=== PATIENT | male | born 1995 | race Caucasian/White ===

== ENCOUNTER 2023-12-25 13:54 | Emergency (ER) | payer OTHER, SELFPAY ==
[2023-12-25 13:55] VITALS: BP 162/88; PULSE 111; RESP 16; TEMP 35.9; O2SAT 98; BMI 34.8
--- NOTE | 2023-12-25 14:01 | CT_ITS ---
EXAM: CT HEAD WITHOUT INTRAVENOUS CONTRAST CLINICAL INDICATION: visual problem TECHNIQUE: Multiple axial images were obtained of the head without intravenous contrast. This CT exam was performed using one or more of the following dose reduction techniques: automated exposure control, adjustment of the mA and/or kV according to patient size, and/or use of iterative reconstruction technique. RADIATION DOSE: CTDIvol = 44.99 mGy, DLP = 846.73 mGy-cm COMPARISON: No relevant prior studies available. FINDINGS: BRAIN AND EXTRA-AXIAL SPACES: Unremarkable. No intra- or extra-axial hemorrhage. No evidence of acute infarct. No intracranial mass or mass effect. There is preservation of the rawls/white matter interface. Posterior fossa structures are unremarkable. Ventricles are appropriate for age. No hydrocephalus. Basal cisterns are patent. BONES/JOINTS: Unremarkable. No discrete lytic or blastic abnormalities. SINUSES: There is sinus disease. MASTOID AIR CELLS: Unremarkable. Clear. ORBITS: Visualized globes, extraocular muscles, optic nerves and retrobulbar fat appear unremarkable. CT/Brain/Head without Contrast IMPRESSION: No acute findings in the head/brain. Electronically Signed: Ryley Godwin MD at 14:45 EDT ,
[2023-12-25 14:40] LABS: Absolute Lymphocyte Count 1.96 X10^3/uL (0.83-4.51); Basophil# 0.06 X10^3/uL; Basophil% 0.4 % (0-1); Eosinophil# 0.02 X10^3/uL; Eosinophils% 0.1 % (0-5); Hematocrit 44.4 % (40-54); Hemoglobin 14.8 g/dL (13.0-16.5); Lymphocyte # 1.96 X10^3/ul (0.83-4.51); Lymphocyte % 12.2 % (19-41); Mean Corp Hgb Conc 33.3 g/dL (32-36); Mean Corpuscular Hgb 28.6 pg (27.0-32.0); Mean Corpuscular Volume 85.7 fL (80-94); Mean Platelet Vol. 11.4 fl (6.2-12.0); Monocyte# 1.02 X10^3/uL; Monocyte% 6.3 % (0-10); NRBC Flagged by Analyzer 0 % (0-5); Neutrophil # 12.95 X10^3/uL (2.7-7.7); Neutrophil % 80.6 % (47-70); Platelet Count 242 K/mm3 (150-450); RBC Distribution Width CV 13.2 % (11.6-14.6); RBC Distribution Width SD 41.1 fl (35.1-43.9); Red Blood Count 5.18 M/mm3 (4.6-6.2); White Blood Count 16.1 K/mm3 (4.4-11.0)
--- NOTE | 2023-12-25 14:53 | EDS_ITS ---
HPI History of Present Illness Chief Complaint: Eye Problem Narrative Narrative: 28-year-old male presenting as a referral from Dr. Gu. He is being worked up for optic neuritis as an outpatient. Dr. Gu wants to make sure that he has a normal CT of the brain that does not have a mass because he is having blurring of the vision which has been present for 2 days. Denies headaches. Denies fevers or chills. Denies neck pain or stiffness. Denies any history of similar symptoms. He states his left eye vision is eating worse. It hurts when he moves his eye left and right. No facial swelling. No trauma. PFSH PFSH Allergy/AdvReac Type Severity Reaction Status Date / Time azithromycin (From Zithromax) Allergy Mild Hives Verified 12/25/23 13:57 Social History Smoking Status: Never smoker EXAM Physical Exam Const Vital Signs: 12/25/23 13:55 Temperature 96.6 F L Temperature Source Temporal Pulse Rate 111 H Respiratory Rate 16 Blood Pressure 162/88 H Blood Pressure Mean 112 Pulse Ox 98 Oxygen Delivery Method Room Air Positive well nourished General Appearance ED: NAD HEENT atraumatic Neck no lymphadenopathy Resp normal respiratory effort Cardio regular rate and regular rhythm Neuro oriented x3 and CN's II-XII intact bilaterally Sensorium / Orientation: alert Motor Exam: strength 5/5 throughout Skin no wounds MDM MDM MDM Narrative Medical decision making narrative: 28-year-old male presenting with left eye pain and visual loss. He was seen by Dr. Gu who diagnosed him with optic neuritis. He recommended getting a CT scan to make sure he did not have any kind of tumor. He does not feel like the patient has any kind of infectious process. CT of the brain was negative. Dr. Gu requested a CBC which shows a white blood cell count of 16.1. Platelets are normal. Patient states he has not had any other symptoms. He has not had a fever, chills, cough. He has not any nausea or vomiting. Denies abdominal pain. It is unclear what the source of the white blood cell count is however when I spoke with Dr. Gu again he recommended giving the patient Solu- Medrol 1 g and he will have him follow-up as an outpatient to get infusions of this for the next couple of days until he can get into the [facility]. He is concerned the patient might have MS. Patient is comfortable with this plan and is discharged home in stable condition. Impression: 1. Optic neuritis 2. Leukocytosis Lab Data Attestation: I reviewed the patient's lab results. Labs: Laboratory Results - last 24 hr 12/25/23 14:29 WBC 16.1 H RBC 5.18 Hgb 14.8 Hct 44.4 MCV 85.7 MCH 28.6 MCHC 33.3 RDW Std Deviation 41.1 RDW Coeff of Joe 13.2 Plt Count 242 MPV 11.4 Immature Gran % (Auto) 0.400 Neut % (Auto) 80.6 H Lymph % (Auto) 12.2 L [place] % (Auto) 6.3 Eos % (Auto) 0.1 Baso % (Auto) 0.4 Absolute Neuts (auto) 13.0 H Absolute Lymphs (auto) 1.96 Nucleated RBC % 0 Radiography Diagnostic Testing: Clinical Impression(s) from Imaging Studies Brain CT 12/25/23 14:01 IMPRESSION: No acute findings in the head/brain. Electronically Signed: Ryley Godwin MD at 14:45 EDT , Discharge Plan Triage Chief Complaint: Eye Problem ED Provider: Klaus Benitez Dx/Rx/DC Orders Primary Care Provider: Anthony Cameron Referrals: Anthony Cameron MD [Primary Care Provider] - Print Language: Bhutanese
[2023-12-25 14:54] LABS: Anion Gap 8 (5-15); BUN 18 mg/dL (7-18); BUN/Creat Ratio 18.8 RATIO (10-20); Calcium,Total 9.2 mg/dL (8.5-10.1); Chloride 107 mmol/L (98-107); Creatinine, Serum 0.96 mg/dL (0.70-1.30); EST Glomerular Filtration Rate 98 mL/min (>60); Est Glom Filt Rate - Afr Amer 118 mL/min (>60); Estimated Creatinine Clearance 139.84 ml/min; Glucose 153 mg/dL (74-106); Potassium 3.5 mmol/L (3.5-5.1); Sodium Level 139 mmol/L (136-145)
[2023-12-25 15:31] VITALS: BP 136/82; PULSE 101; RESP 18; TEMP 36.4; O2SAT 97
[2023-12-25] MEDS: MethylPREDNISolone 1,000 MG in 0.9% Normal Saline (100mL Bag) 100 ML 100 MG IV (15:39)
[2023-12-25 16:00] VITALS: BP 158/68; PULSE 82; RESP 16; O2SAT 99
[2023-12-25 16:57] VITALS: BP 132/73; PULSE 104
== END 2023-12-25 17:01 | disposition home or self-care (01) ==
PROVIDERS: Emergency Provider Student in an Organized Health Care Education/Training Program; PCP Family Medicine; Visit Provider Student in an Organized Health Care Education/Training Program
DX: H46.9 Unspecified optic neuritis (principal); H54.7 Unspecified visual loss; D72.829 Elevated white blood cell count, unspecified
CPT/HCPCS: 70450; 80048; 85025; 96365; 99282; A4216; J2919

== ENCOUNTER 2023-12-26 11:43 | Outpatient (CLI) | payer OTHER, SELFPAY ==
[2023-12-26 12:10] VITALS: BP 138/84; PULSE 80; RESP 16; TEMP 36.9; O2SAT 99
[2023-12-26] MEDS: MethylPREDNISolone 1,000 MG in 0.9% Normal Saline (250mL Bag) 250 ML 250 MG IV (12:31)
[2023-12-26 13:44] VITALS: BP 140/80; PULSE 99; RESP 16
== END 2023-12-26 23:59 | disposition home or self-care (01) ==
PROVIDERS: PCP Family Medicine; Visit Provider Ophthalmology
DX: H46.9 Unspecified optic neuritis (principal)
CPT/HCPCS: 96365; J7050; A4216; J2919

== ENCOUNTER 2023-12-27 09:31 | Outpatient (CLI) | payer OTHER, SELFPAY ==
[2023-12-27 09:46] VITALS: BP 134/76; PULSE 68; RESP 16; TEMP 36.6; O2SAT 98; BMI 34.4
[2023-12-27] MEDS: MethylPREDNISolone 1,000 MG in 0.9% Normal Saline (250mL Bag) 250 ML 250 MG IV (10:24)
[2023-12-27 11:38] VITALS: BP 126/73; PULSE 92; RESP 16; TEMP 36.7; O2SAT 98
== END 2023-12-27 23:59 | disposition home or self-care (01) ==
LOC: MEDOUTP 09:32
PROVIDERS: PCP Family Medicine; Referring Provider Ophthalmology; Visit Provider Ophthalmology
DX: H46.9 Unspecified optic neuritis (principal)
CPT/HCPCS: 96365; J7050; A4216; J2919